=== PATIENT | male | born 2000 | race Caucasian/White ===

== ENCOUNTER 2020-08-17 19:45 | Emergency (ER) | payer OTHER ==
[~2020-08-17] VITALS: Ht 177.8 cm; Wt 70.5 kg
[2020-08-17 19:46] VITALS: TEMP 97.6
[2020-08-18 00:52] VITALS: BP 131/68; PULSE 68
== END 2020-08-18 00:54 | disposition home or self-care (01) ==
LOC: COL.ER 19:45
DX: S06.0X1A Concussion with loss of consciousness of 30 minutes or less, initial encounter (principal); S01.512A Laceration without foreign body of oral cavity, initial encounter; S40.012A Contusion of left shoulder, initial encounter; W51.XXXA Accidental striking against or bumped into by another person, initial encounter; Y93.64 Activity, baseball